=== PATIENT | female | born 1960 | race Caucasian/White ===

== ENCOUNTER 2019-06-13 07:48 | Day surgery (SDC) | payer BC ==
[~2019-06-13 07:48] MED LIST: BUPIVACAINE 0.5% (SDV) 30 ML, morphine SULFATE (PF) 8 MG, EPINEPHrine 0.3 MG, KETOROLAC... IRR; CEFAZOLIN 2 GM/50 ML (PMX) 50 ML IVPB
[2019-06-13] MEDS: DEXAMETHASONE 2 MG TAB PO (09:16)
[2019-06-13] MEDS: GABAPENTIN 300 MG CAP PO (09:16)
[2019-06-13] MEDS: LACTATED RINGER'S 1,000 ML (ENTER RATE) IV (09:17)
[2019-06-13] MEDS: LIDOCAINE 4% CR TOP (09:58)
[2019-06-13] MEDS ORDERED: ROCURONIUM 50 MG INJ (10:23)
[2019-06-13] MEDS ORDERED: FENTAnyl 50 MCG/ML VIAL ×2 (10:23→11:58)
[2019-06-13] MEDS ORDERED: MIDAZOLAM 1 MG/ML 2 ML INJ (10:23)
[2019-06-13] MEDS ORDERED: PROPOFOL 20 ML (10:23)
[2019-06-13] MEDS ORDERED: ROPIVACAINE 0.5 % 30 ML VIAL (10:24)
[2019-06-13] MEDS ORDERED: hydrALAzine 20 MG INJ (11:58)
[2019-06-13] MEDS ORDERED: LABETALOL HCL 20MG INJ (11:58)
[2019-06-13] MEDS ORDERED: DEXAMETHASONE 4 MG/ML 5 ML INJ (12:41)
[2019-06-13] MEDS ORDERED: ONDANSETRON 4 MG INJ (12:41)
[2019-06-13] MEDS ORDERED: METOCLOPRAMIDE 10 MG INJ (12:41)
[2019-06-13] MEDS ORDERED: SUGAMMADEX SODIUM 200 MG/2 ML VIAL IV (12:43)
[2019-06-13] MEDS ORDERED: KETOROLAC 30 MG INJ (12:43)
[2019-06-13] MEDS ORDERED: DESFLURANE 15 MIN (13:30)
[2019-06-13] MEDS: MEPERIDINE 25 MG INJ IV (13:50)
[2019-06-13] MEDS: ONDANSETRON 4 MG INJ IV (13:51)
[2019-06-13] MEDS ORDERED: METOCLOPRAMIDE 10 MG INJ IV (14:00)
[2019-06-13] MEDS ORDERED: OXYCODONE/ACETAMINOPHEN (5/325) TAB PO ×2 (14:00)
[2019-06-13] MEDS ORDERED: HYDROmorphONE 1 MG/5 ML IV SYRINGE IV ×3 (14:00)
[2019-06-13] MEDS ORDERED: LABETALOL HCL 20MG INJ IV (14:00)
[2019-06-13] MEDS ORDERED: EPHEDrine 25 MG/5 ML SYG IV (14:00)
[2019-06-13] MEDS ORDERED: FENTAnyl 50 MCG/ML VIAL IV ×3 (14:00)
[2019-06-13] MEDS ORDERED: hydrALAzine 20 MG INJ IV (14:00)
[2019-06-13] MEDS ORDERED: DIPHENHYDRAMINE 50 MG INJ IV (14:00)
[2019-06-13] MEDS: TRANEXAMIC ACID 1GM/100ML(PMX) 100 ML IVPB (14:02)
== END 2019-06-13 16:05 | disposition home or self-care (01) ==
LOC: SDS 07:48
DX: M75.102 Unspecified rotator cuff tear or rupture of left shoulder, not specified as traumatic (principal); S46.212D Strain of muscle, fascia and tendon of other parts of biceps, left arm, subsequent encounter; M19.012 Primary osteoarthritis, left shoulder; M25.812 Other specified joint disorders, left shoulder; X58.XXXD Exposure to other specified factors, subsequent encounter; I10 Essential (primary) hypertension
CPT/HCPCS: 29823